=== PATIENT | male | born 1960 | race Caucasian/White ===

== ENCOUNTER 2019-06-20 20:43 | Emergency (ER) | payer MEDICARE ==
[~2019-06-20] VITALS: Ht 167 cm; Wt 125.0 kg
--- NOTE | 2019-06-20 21:01 | ED Fall/Injury ---
General Stated Complaint: FALL/INJ Source: patient, EMS Exam Limitations: no limitations History of Present Illness Date Seen by Provider: Jun 20, 2019 Time Seen by Provider: 20:46 Initial Comments Patient presents to ER by EMS from his place of work where he was leaving and as he stepped out on the curb he fell down on his outstretched forearms and face. He's not in pain on movement in bilateral elbows and wrist. EMS said there is some crepitus felt in his left wrist so they splinted it. There is dried blood on his face from a epistaxis which is no longer bleeding. He denies loss of consciousness. He is on aspirin but no other blood thinners. He takes blood pressure medicines and venlafaxine for mood. He denies pain any where else. No numbness or weakness. EMS provided him with 100 g of fentanyl en route. He rates his pain at rest at 3 out of 10. Allergies and Home Medications Allergies Coded Allergies: Penicillins (Verified Allergy, Unknown, 06/20/19) Home Medications Hydrocodone Bit/Acetaminophen 1 Tab Tab, 1 EACH PO Q4-6HR PRN for PAIN-MODERATE Prescribed by: MOHSEN PICKENS on 06/21/19 0238 Patient Home Medication List Home Medication List Reviewed: Yes Review of Systems Review of Systems Constitutional: No chills, No diaphoresis Eyes: Denies Blindness, Denies Blurred Vision Ears, Nose, Mouth, Throat: denies ear pain, denies ear discharge Respiratory: No cough, No short of breath Cardiovascular: No chest pain, No edema Gastrointestinal: No abdominal pain, No constipation, No diarrhea Past Fmhaaoa-Lvthmm-Okwsjf Hx Patient Social History Alcohol Use: Denies Use Recreational Drug Use: No Smoking Status: Never a Smoker Physical Exam Vital Signs Vital Signs - First Documented 06/20/19 20:45 Temp 36.8 Pulse 80 Resp 18 B/P (MAP) 182/91 (121) Capillary Refill : Height, Weight, BMI Height: '" Weight: lbs. oz. kg; BMI Method: General Appearance: WD/WN, mild distress HEENT: PERRL/EOMI, TMs normal, pharynx normal, other (dried blood both naris. No appreciable abrasions or ecchymoses.) Neck: non-tender, full range of motion, supple, normal inspection Cardiovascular: normal peripheral pulses, regular rate, rhythm, no edema Respiratory: chest non-tender, lungs clear, normal breath sounds, no respiratory distress, no accessory muscle use Peripheral Pulses: 2+ Dorsalis Pedis (R), 2+ Left Dors-Pedis (L), 2+ Radial Pulses (R), 2+ Radial Pulses (L) Gastrointestinal: normal bowel sounds, non tender, soft Pelvic: normal external exam Extremities: other (bilateral upper extremities has pain on movement of the elbow and shoulder. Pain and bilateral wrists.) Neurologic/Psychiatric: no motor/sensory deficits, alert, normal mood/affect, oriented x 3 Skin: normal color, warm/dry Procedures/Interventions Splinting and Joint Reduction : Location: Bilat Elbows Pre-Proc Neuro Vasc Exam: normal Post-Proc Neuro Vasc Exam: normal, unchanged from pre-exam Progress Conscious sedation using 200 mg of propofol which was unsuccessful so we gave 5 mg additional Versed which gave us. Sedation. RT was present, end-tidal CO2, as well as a monitor were in place. Patient tolerated procedure well and the left elbow was able to easily be reduced and splinted. The right elbow easily reduced but then came back out of place spontaneously. We tried putting traction splinting as well and then obtained postprocedure x-rays. The patient tolerated sedation well. He gave verbal consent for the procedure as well as sedation. Reduction Attempts: 1 Pre-Procedure NV Exam: Yes post joint reduction film: joint not reduced Progress Spoke to Dr. Hayden and he agreed to come in. He used the C-arm/fluoroscopy and we maintain sedation using 200 g of fentanyl and 10 mg of Versed. Patient had had an oropharyngeal airway placed but maintained sats in the 90s and end-tidal CO2 between 40 and 50. We were able to reduce and splint the right elbow easily and had confirmation imaging laparoscopy. The left elbow was more difficult but was eventually able to be reduced. There were fractures of both radial heads noted which contributed to the difficulty of the reduction. The left arm was then splinted in both were placed in slings. Patient tolerated procedure well. He came to from sedation and was feeling much better. He says his pain is reduced significantly. Confirmation films are on fluoroscopy. Neurovascular intact but capillary refill less than 1 second bilateral fingers. Sensation intact. Radial pulse palpable 2 out of 4. Isra wrap: Yes Arm Sling: Large Hand-Made Type: orthoglass Splint Application: Long Arm Progress/Results/Core Measures Results/Orders Lab Results Laboratory Tests Test 06/20/19 21:13 Range/Units White Blood Count 10.3 4.3-11.0 10^3/uL Red Blood Count 5.19 4.35-5.85 10^6/uL Hemoglobin 14.5 13.3-17.7 G/DL Hematocrit 44 40-54 % Mean Corpuscular Volume 84 80-99 FL Mean Corpuscular Hemoglobin 28 25-34 PG Mean Corpuscular Hemoglobin Concent 33 32-36 G/DL Red Cell Distribution Width 14.1 10.0-14.5 % Platelet Count 177 130-400 10^3/uL Mean Platelet Volume 9.6 7.4-10.4 FL Neutrophils (%) (Auto) 68 42-75 % Lymphocytes (%) (Auto) 17 12-44 % Monocytes (%) (Auto) 8 0-12 % Eosinophils (%) (Auto) 6 0-10 % Basophils (%) (Auto) 1 0-10 % Neutrophils # (Auto) 7.0 1.8-7.8 X 10^3 Lymphocytes # (Auto) 1.7 1.0-4.0 X 10^3 Monocytes # (Auto) 0.9 0.0-1.0 X 10^3 Eosinophils # (Auto) 0.6 H 0.0-0.3 10^3/uL Basophils # (Auto) 0.1 0.0-0.1 10^3/uL Sodium Level 136 135-145 MMOL/L Potassium Level 4.3 3.6-5.0 MMOL/L Chloride Level 100 98-107 MMOL/L Carbon Dioxide Level 24 21-32 MMOL/L Anion Gap 12 5-14 MMOL/L Blood Urea Nitrogen 15 7-18 MG/DL Creatinine 0.83 0.60-1.30 MG/DL Estimat Glomerular Filtration Rate > 60 BUN/Creatinine Ratio 18 Glucose Level 96 70-105 MG/DL Calcium Level 9.5 8.5-10.1 MG/DL Corrected Calcium 9.6 8.5-10.1 MG/DL Total Bilirubin 0.3 0.1-1.0 MG/DL Aspartate Amino Transf (AST/SGOT) 16 5-34 U/L Alanine Aminotransferase (ALT/SGPT) 34 0-55 U/L Alkaline Phosphatase 70 40-136 U/L Total Protein 6.6 6.4-8.2 GM/DL Albumin 3.9 3.2-4.5 GM/DL Serum Alcohol < 10 <10 MG/DL My Orders Orders - MOHSEN PICKENS Ct Head/Cervical Spine Wo (06/20/19 20:53) Cbc With Automated Diff (06/20/19 20:53) Comprehensive Metabolic Panel (06/20/19 20:53) Alcohol (06/20/19 20:53) Elbow, Left, 3 Views (06/20/19 20:54) Elbow, Right, 3 Views (06/20/19 20:54) Wrist,Bilat,3 Views Or More (06/20/19 20:54) Propofol Injection (Diprivan Injection) (06/20/19 22:30) Midazolam Injection (Versed Injection) (06/20/19 23:28) Fentanyl Injection (Sublimaze Injection (06/20/19 23:46) Propofol Injection (Diprivan Injection) (06/21/19 00:15) Fentanyl Injection (Sublimaze Injection (06/21/19 00:15) Midazolam Injection (Versed Injection) (06/21/19 00:15) Elbow, Right, 2 View (06/21/19 00:10) Elbow, Left, 2 Views (06/21/19 00:10) Fluoroscopy (06/21/19 01:01) Fentanyl Injection (Sublimaze Injection (06/21/19 02:00) Midazolam Injection (Versed Injection) (06/21/19 02:00) Medications Given in ED Current Medications Medications Dose Ordered Sig/[place] Route Start Time Stop Time Status Last Admin Dose Admin Propofol 40 mg ONCE ONCE IV 06/20/19 22:30 06/21/19 00:13 DC 06/20/19 23:06 40 MG Vital Signs/I&O 06/20/19 20:45 Temp 36.8 Pulse 80 Resp 18 B/P (MAP) 182/91 (121) Progress Progress Note : Time: 21:[address] without IV contrast of the head and C-spine. X-ray of the bilateral elbows and wrists. He is declining anything further for pain at this time. Diagnostic Imaging Diagonstic Imaging: Xray Plain Films/CT/US/NM/MRI: elbow (bilateral) Comments Difficult study. Fracture fragments of the radial head noted. Dislocation of the ulna and radius proximally Reviewed: Reviewed by Me Diagonstic Imaging: Xray Plain Films/CT/US/NM/MRI: hand (bilateral wrists) Comments Fracture of the radius Reviewed: Reviewed by Me Diagonstic Imaging: CT (without IV contrast) Plain Films/CT/US/NM/MRI: c-spine, head Comments NAME: NAHUN LENNON [facility] REC#: [id number] PHYSICIAN: MOHSEN PICKENS MD CC: ROSEMARIE TROTTER MD; MOHSEN PICKENS Page 2 of 2 RADIOLOGY REPORT [facility] [place] [place] CC: ROSEMARIE TROTTER MD; MOHSEN PICKENS Page 1 of 2 RADIOLOGY REPORT NAME: NAHUN LENNON [facility] REC#: [id number] PT STATUS: REG ER : 1960 PHYSICIAN: MOHSEN PICKENS MD ADMIT DATE: 06/20/19/ER Signed Date of Exam: 06/20/19 CT HEAD/CERVICAL SPINE WO PROCEDURE: CT head and CT cervical spine without contrast. TECHNIQUE: Multiple contiguous axial images were obtained through the brain and cervical spine without the use of intravenous contrast. Sagittal and coronal reformations through the cervical spine were then performed. Auto Exposure Controls were utilized during the CT exam to meet ALARA standards for radiation dose reduction. INDICATION: Trauma, head and neck pain There are no prior studies available for comparison. CT HEAD: There is no mass, shift of the midline or hemorrhage to indicate an acute abnormality. There are basal ganglia calcifications bilaterally. This is a developmental variant. The ventricles are not abnormally dilated. There is cortical atrophy present. The degree of atrophy is consistent with the patient's age. The bone windows show no sign of a fracture or of a destructive lesion. The orbits are symmetrical and within normal limits. There is mucosal thickening of the ethmoid sinuses. The sinuses are otherwise generally clear. IMPRESSION: 1. There is no evidence for an acute intracranial abnormality. 2. If clinical concern regarding an acute abnormality persists, then MRI would be recommended for further study. CT cervical spine: This exam is less than optimal due to the patient's body habitus. The reconstructed parasagittal images show the vertebral body heights and alignment to be within normal limits and similar to the previous CT soft tissue neck exam of 05/07/2008. There is mild narrowing of the disc spaces at C5-C6 and C6-C7. There is no high-grade central stenosis identified, however. There is no fracture or acute bony abnormality evident. There is no evidence for retropharyngeal edema. The thyroid gland was not well visualized. The lung apices are clear. IMPRESSION: There is no evidence for an acute bony abnormality on this suboptimal exam. These results were discussed with Dr. Pickens in the Emergency Room. Dictated by: Dictated on workstation # [id number] Dict: 06/20/192201 Trans: 06/20/192218 Interpreted by: ROSEMARIE TROTTER MD Electronically signed by: ROSEMARIE TROTTER MD 06/20/192218 Reviewed: Reviewed by Me Consults : Consulting Physician: KALA HAYDEN MD Consults Notes Discussed the case with Dr. Hayden and he agrees with the plan to reduce bilateral elbows. He will review the images. 0045: Discussed the inability to get the joints to reduce with Dr. Hayden and he would like us to get the patient ready for sedation and he will come in and attempt. He also would like the radio interference investigator to bring the C-arm down. Departure Impression Primary Impression: Fall Qualified Codes: W19.XXXA - Unspecified fall, initial encounter Additional Impressions: Dislocation closed, elbow Qualified Codes: S53.106A - Unspecified dislocation of unspecified ulnohumeral joint, initial encounter Bilateral radial fractures Qualified Codes: S52.91XA - Unspecified fracture of right forearm, initial encounter for closed fracture; S52.92XA - Unspecified fracture of left forearm, initial encounter for closed fracture Disposition: 01 HOME, SELF-CARE Condition: Improved Departure-Patient Inst. Decision time for Depature: 02:33 Referrals: NO,LOCAL PHYSICIAN (PCP) Primary Care Physician KALA HAYDEN MD Patient Instructions: Elbow Fracture (DC), Radius Fracture (DC) Add. Discharge Instructions: You will need surgery in the next week or so. Dr. Hayden's office will be contacting you sometime this morning to help you set up with a surgeon. If you don't hear anything by noon and you need to call his clinic at the number listed above. If you have pain you may take Tylenol 650 mg every 8 hours in addition to ibuprofen 800 mg every 8 hours. You may also use hydrocodone one tablet every 6 hours as needed for breakthrough pain. You may apply ice to your elbows for the first 1-2 days. If you lose sensation in your fingertips or are having excessive swelling then you need to loosen the wraps on your splints or you may return to the ER for help managing it. If you're having difficulty with your day-to-day functions you can talk your primary care doctor about placement in assisted living or you can look for a in-home healthcare aid. Scripts Hydrocodone Bit/Acetaminophen (Hydrocodone/Acetaminophen 5/325mg Tablet) 1 Tab Tab 1 EACH PO Q4-6HR PRN for PAIN-MODERATE MDD 10, #14 TAB Prov: MOHSEN PICKENS 06/21/19 Work/School Note: Work Release Form Date Seen in the Emergency Department: Jun 21, 2019 Return to Work: Jun 24, 2019 Restrictions: Need Release from Doctor Other Restrictions Listed Below: No use of bilateral arms onto by the surgeon. No operating heavy machinery. MOHSEN PICKENS Jun 20, 2019 21:01
[2019-06-20 21:25] LABS: BASOPHILS # (AUTO) 0.1 10^3/uL (0.0-0.1); BASOPHILS % (AUTO) 1 % (0-10); EOSINOPHILS # (AUTO) 0.6 10^3/uL (0.0-0.3); EOSINOPHILS % (AUTO) 6 % (0-10); HEMATOCRIT 44 % (40-54); HEMOGLOBIN 14.5 G/DL (13.3-17.7); LYMPHOCYTES # (AUTO) 1.7 X 10^3 (1.0-4.0); LYMPHOCYTES % (AUTO) 17 % (12-44); MEAN CORPUSCULAR HEMOGLOBIN 28 PG (25-34); MEAN CORPUSCULAR HGB CONC 33 G/DL (32-36); MEAN CORPUSCULAR VOLUME 84 FL (80-99); MEAN PLATELET VOLUME 9.6 FL (7.4-10.4); MONOCYTES # (AUTO) 0.9 X 10^3 (0.0-1.0); MONOCYTES % (AUTO) 8 % (0-12); NEUTROPHILS % (AUTO) 68 % (42-75); PLATELET COUNT 177 10^3/uL (130-400); RED CELL DISTRIBUTION WIDTH 14.1 % (10.0-14.5); WHITE BLOOD COUNT 10.3 10^3/uL (4.3-11.0)
[2019-06-20 21:44] LABS: ALANINE AMINOTRANSFERASE 34 U/L (0-55); ALBUMIN 3.9 GM/DL (3.2-4.5); ALKALINE PHOSPHATASE 70 U/L (40-136); BILIRUBIN,TOTAL 0.3 MG/DL (0.1-1.0); BUN/CREATININE RATIO 18; CALCIUM 9.5 MG/DL (8.5-10.1); CARBON DIOXIDE 24 MMOL/L (21-32); CHLORIDE 100 MMOL/L (98-107); CREATININE SERUM 0.83 MG/DL (0.60-1.30); GFR ESTIMATED > 60; GLUCOSE 96 MG/DL (70-105); POTASSIUM 4.3 MMOL/L (3.6-5.0); SODIUM 136 MMOL/L (135-145); TOTAL PROTEIN 6.6 GM/DL (6.4-8.2)
--- NOTE | 2019-06-20 22:13 | Diagnostic Imaging Report ---
PROCEDURE: CT head and CT cervical spine without contrast. TECHNIQUE: Multiple contiguous axial images were obtained through the brain and cervical spine without the use of intravenous contrast. Sagittal and coronal reformations through the cervical spine were then performed. Auto Exposure Controls were utilized during the CT exam to meet ALARA standards for radiation dose reduction. INDICATION: Trauma, head and neck pain There are no prior studies available for comparison. CT HEAD: There is no mass, shift of the midline or hemorrhage to indicate an acute abnormality. There are basal ganglia calcifications bilaterally. This is a developmental variant. The ventricles are not abnormally dilated. There is cortical atrophy present. The degree of atrophy is consistent with the patient's age. The bone windows show no sign of a fracture or of a destructive lesion. The orbits are symmetrical and within normal limits. There is mucosal thickening of the ethmoid sinuses. The sinuses are otherwise generally clear. IMPRESSION: 1. There is no evidence for an acute intracranial abnormality. 2. If clinical concern regarding an acute abnormality persists, then MRI would be recommended for further study. CT cervical spine: This exam is less than optimal due to the patient's body habitus. The reconstructed parasagittal images show the vertebral body heights and alignment to be within normal limits and similar to the previous CT soft tissue neck exam of 05/07/2008. There is mild narrowing of the disc spaces at C5-C6 and C6-C7. There is no high-grade central stenosis identified, however. There is no fracture or acute bony abnormality evident. There is no evidence for retropharyngeal edema. The thyroid gland was not well visualized. The lung apices are clear. IMPRESSION: There is no evidence for an acute bony abnormality on this suboptimal exam. These results were discussed with Dr. Pickens in the Emergency Room. Dictated by: Dictated on workstation # [id number]
[2019-06-20] MEDS ORDERED: proPOfol 200 MG/20 ML (DIPRIVAN) VIAL IV ONE (22:30)
[2019-06-20] MEDS ORDERED: MIDAZOLAM 5 MG/5 ML (VERSED) VIAL ONE (23:28)
[2019-06-20] MEDS ORDERED: fentaNYL INJECTION 100 MCG/2 ML AMP ONE (23:46)
--- NOTE | 2019-06-20 23:54 | NUR ---
2257- VERBAL CONSENT OBTAINED AND FORM SIGNED BY THIS BIOMED TECH/RN AND Lizzy ARZOLA RN PT HAS BILATERAL ELBOW FX AND RIGHT RADIAL FX. 2309-CONSCIOUS SEDATION BEGAN AT THIS TIME WITH DR. KNIGHT AT BEDSIDE FOR REDUCTION OF BILATERAL ELBOW FRACTURES. RT MELISSA AT BEDSIDE. ETCO2 MONITORING IN PLACE AND DOCUMENTED WITH VITAL SIGNS. 2320- PT BECOMING DROWSY, O2 SATS DROPPING TO 90%. 2L 02 VIA NC PLACED BY RT MELISSA. O2 SATS INCREASED TO 100%. 2354- BILATERAL REDUCTION COMPLETE. TWO 4 INCH RIANA WRAPS APPLIED TO BILATERAL ARMS AND BOTH ARMS PLACED IN LARGE SLINGS.
[2019-06-21] MEDS ORDERED: MIDAZOLAM 5 MG/5 ML (VERSED) VIAL IVP ONE (00:15)
[2019-06-21] MEDS ORDERED: proPOfol 200 MG/20 ML (DIPRIVAN) VIAL IV ONE (00:15)
[2019-06-21] MEDS ORDERED: fentaNYL INJECTION 100 MCG/2 ML AMP IVP ONE ×2 (00:15→02:00)
[2019-06-21] MEDS ORDERED: MIDAZOLAM 10 MG/2 ML (VERSED) VIAL IVP ONE (02:00)
--- NOTE | 2019-06-21 02:00 | NUR ---
0110- DR. CANO AND DR. KNIGHT AT BEDSIDE. VERBAL CONSENT OBTAINED AND FORM SIGNED BY THIS GLOBAL PRODUCT MANAGER/RN AND Lizzy ARZOLA RN PT HAS BILATERAL ELBOW FX AND RIGHT RADIAL FX. 0115- CONSCIOUS SEDATION BEGAN AT THIS TIME WITH DR. ACNO (ORTHO) AND DR. KNIGHT ASSISTING AT BEDSIDE FOR REDUCTION OF BILATERAL ELBOW FRACTURES. RT MELISSA AT BEDSIDE. ETCO2 MONITORING IN PLACE AND DOCUMENTED WITH VITAL SIGNS. CHRISTINA PETE AT BEDSIDE WITH FLUOROSCOPIC C ARM. 0130- ORAL AIRWAY PLACED. 0132- 02 SATS DROPPED TO 60-70%. BAG MASK VENTILATION BY RT MELISSA. O2 SATS INCREASED RAPIDLY. 0145- O2 PLACED AT 2L. 02 SATS 96%. 0200- BILATERAL REDUCTION COMPLETE. 3 INCH ORTHO GLASS TO LEFT ARM, 4 INCH ORTHO GLASS TO RIGHT ARM WITH TWO 4 INCH RIANA WRAPS APPLIED TO BILATERAL ARMS AND BOTH ARMS PLACED IN LARGE SLINGS.
[2019-06-21] MEDS ORDERED: ACHD5005 PO (02:38)
--- NOTE | 2019-06-21 02:40 | NUR ---
PT AWAKE, ALERT, ANSWERING QUESTIONS. ASKING THE SAME QUESTIONS MX TIMES ABOUT D/C. DR. KNIGHT ANSWERED QUESTIONS AND INFORMED PT PAPERWORK WOULD INCLUDE D/C INSTRUCTIONS. PT FRIEND CALLED AT THIS TIME TO PICK HIM UP.
[2019-06-21 03:50] VITALS: BP 123/62
[2019-06-21] MEDS ORDERED: RX-HYDROCODONE/APAP 5/325 MG #4 TAB PK PO PRN (04:00)
--- NOTE | 2019-06-21 04:22 | CONSULTATION REPORT ---
DATE OF SERVICE: 06/21/2019 ER CONSULTATION WITH PROCEDURE REASON FOR CLINIC VISIT: 1. Right elbow fracture dislocation. 2. Left elbow fracture dislocation. 3. Right distal radius fracture. HISTORY OF PRESENT ILLNESS: The patient is a 58-year-old right hand dominant gentleman who fell down steps landing on his bilateral outstretched upper extremities. He was found to have fracture dislocation of his bilateral elbows and right distal radius. Closed reductions were performed by Dr. Pickens; however, these were found to be unstable; therefore, I was consulted. PHYSICAL EXAMINATION: EXTREMITIES: The patient had intact MCP extension, finger abduction, thumb IP flexion and extension and intact sensation in radial, ulnar and median distribution. His bilateral upper extremities, there is a small abrasion on his dorsal forearm; otherwise, no abrasions or skin lesions were noted. RADIOGRAPHS: Reveal a volar intra-articular distal radius fracture with volar displacement. In addition, the bilateral elbows demonstrate displaced radial head fractures with posterior dislocation. IMPRESSION: Bilateral elbow fracture/dislocation, right distal radius fracture. PLAN: Conscious sedation was given and closed reductions were performed of the bilateral elbows and right distal radius. Splints were applied. Both elbows were found to be very unstable with reductions performed under C-arm and were splinted, well reduced; however, both elbows were relatively unstable post-reduction. The patient remained neurovascularly intact. PLAN: Recommended evaluation by an upper extremity trauma surgeon. We will discuss this with Dr. Ellington. Job ID: [id number] DocumentID: [id number] Dictated Date: 06/21/2019 01:59:32 [place] [facility] Technician Date: 06/21/2019 04:21:58 Dictated By: KALA CANO MD
--- NOTE | 2019-06-21 05:49 | Diagnostic Imaging Report ---
INDICATION: Fall, pain. COMPARISON: None available. TECHNIQUE: 2 radiographs of the left elbow dated 06/20/2019 FINDINGS: Posterior dislocation of the left elbow joint is identified. Small calcific densities are noted about the elbow joint, particularly about the radial head on image #2. IMPRESSION: Posterior dislocation of the left elbow joint with questionable fracturing about the left elbow joint. Recommend postreduction radiographs for further evaluation. Dictated by: Dictated on workstation # [id number]
--- NOTE | 2019-06-21 05:49 | Diagnostic Imaging Report ---
INDICATION: Fall, elbow pain COMPARISON: None available TECHNIQUE: Two radiographs of the right elbow are obtained dated 06/20/2019 FINDINGS: Examinations are limited secondary to positioning. There appears to be posterior dislocation of the elbow joint. A small calcific density is identified overlying the elbow joint on image #1, which likely relates to a fracture fragment. This could relate to the coronoid process. IMPRESSION: Posterior dislocation of elbow with questionable fracturing of the elbow. Recommend radiographs of the right elbow post reduction for further evaluation. Dictated by: Dictated on workstation # [id number]
--- NOTE | 2019-06-21 05:54 | Diagnostic Imaging Report ---
INDICATION: Wrist pain COMPARISON: None available TECHNIQUE: Single oblique radiograph of the left wrist and 2 radiographs of the right wrist are obtained dated 06/20/2019 FINDINGS: Examination is severely limited as examination was terminated fpc through the examination secondary to wrist and elbow pain FINDINGS: Right: Single oblique radiograph is obtained. Within the limits of this examination, no acute fracture or dislocation. Mild degenerative changes. No suspicious radiopaque foreign body. Right: Significantly comminuted distal radial fracturing with intra-articular extension. Some fracture fragments appear to be anteriorly displaced. No definite additional fracture. Soft tissue swelling about the hand. No suspicious radiopaque foreign body. IMPRESSION: Severely limited examination as examination was terminated early secondary to pain. Comminuted displaced right distal radial fracture with intra-articular extension No definite acute osseous abnormality involving the left wrist. Recommend dedicated 3-4 view radiographs of the bilateral wrists when clinically possible. Dictated by: Dictated on workstation # [id number]
--- NOTE | 2019-06-21 07:06 | Diagnostic Imaging Report ---
INDICATION: Postreduction. COMPARISON: 06/20/2019 TECHNIQUE: Single lateral radiograph of the right elbow is obtained dated 06/21/2019 FINDINGS: Improved alignment of the right elbow joint is noted, though there is persistent posterior dislocation of the elbow joint. Calcific densities are identified both anterior and posterior to the distal humerus. There appears to be some fracturing of the anterior aspect of the radial head. Possible fracture of the coronoid process is also noted. Acute distal radial fracture is also seen. Splint material is in place. IMPRESSION: Alignment is improved though persistent posterior dislocation of the right elbow joint is noted. Acute fracture of the radial head with intra-articular extension with possible fracturing of the coronoid process. Acute distal radial fracture. Dictated by: Dictated on workstation # [id number]
--- NOTE | 2019-06-21 07:09 | Diagnostic Imaging Report ---
INDICATION: Post reduction. COMPARISON: 06/20/2019. TECHNIQUE: Single lateral radiograph of the left elbow dated 06/21/2019. FINDINGS: Alignment is slightly improved though there is persistent posterior dislocation of the left elbow joint. 1.5 cm calcific density is identified anterior to the distal humerus and overlying the humeral neck. The anterior and superior aspect of the radial head appears to be absent. Questionable fracture involving the coronoid process. Splint material is in place. IMPRESSION: Persistent posterior dislocation of the left elbow joint with acute fracturing of the radial head with possible fracturing of the coronoid process. Dictated by: Dictated on workstation # [id number]
--- NOTE | 2019-06-21 08:27 | Diagnostic Imaging Report ---
INDICATION: Elbow dislocation Fluoroscopy was provided for Dr. Hayden during elbow reduction. 36 seconds of fluoroscopy was utilized. Images are somewhat limited but overall alignment appears to be anatomic on the 2nd image. Initial image does show radial capitellar dislocation. IMPRESSION: Limited study but second image does show near anatomic alignment. Dictated by: Dictated on workstation # [id number]
== END 2019-06-21 03:51 | disposition home or self-care (01) ==
LOC: EDUNIT# 20:43 → ER 20:45
DX: S52.91XA Unspecified fracture of right forearm, initial encounter for closed fracture (principal); S52.92XA Unspecified fracture of left forearm, initial encounter for closed fracture; S53.104A Unspecified dislocation of right ulnohumeral joint, initial encounter; S53.105A Unspecified dislocation of left ulnohumeral joint, initial encounter; Z88.0 Allergy status to penicillin; W19.XXXA Unspecified fall, initial encounter
CPT/HCPCS: 29105; 36415; 70450; 72125; 73070; 73080; 80053; 80320; 85025